=== PATIENT | female | born 2000 | race Caucasian/White ===

== ENCOUNTER 2024-01-21 16:35 | Emergency (ER) | payer OTHER, SELFPAY ==
[2024-01-21 16:43] VITALS: BP 156/102
[2024-01-21 17:14] LABS: HCG, Serum Qualitative Screen Negative
[2024-01-21 17:20] LABS: % Basophils 0.6 % (0-2); % Immature Granulocytes 0.6 % (0-0.5); % Lymphocytes 21.3 % (20.5-51.1); % Monocytes 6.5 % (1.7-9.3); Absolute Basophils 0.1 10^3/uL (0-0.2); Absolute Eosinophils 0.8 10^3/uL (0-0.7); Absolute Immature Granulocytes 0.1 10^3/uL (0-0.05); Absolute Lymphocytes 2.7 10^3/uL (1.2-3.4); Absolute Monocytes 0.8 10^3/uL (0.1-0.6); Absolute Neutrophils 8.2 10^3/uL (1.4-6.5); Hematocrit 39.5 % (37.0-47.0); Hemoglobin 13.1 g/dL (12.0-16.0); Mean Corp Hgb Conc. 33.2 g/dL (33.0-37.0); Mean Corpuscular Hgb 29.2 pg (27.0-31.0); Mean Platelet Volume 10.7 fL (7.4-10.4); Nucleated Red Blood Cells % 0 %; Platelet Count 259 10^3/uL (130-400); Red Blood Cell Count 4.49 10^6/uL (4.20-5.40); Red Cell Dist. Width 13.2 % (11.5-14.5); White Blood Cell Count 12.6 10^3/uL (4.8-10.8)
[2024-01-21 17:24] LABS: ALT (SGPT) 25 U/L (0-35); AST (SGOT) 25 U/L (14-36); Albumin 4.7 g/dl (3.5-5.0); Alkaline Phosphatase 108 U/L (38-126); Blood Urea Nitrogen 14 mg/dl (7-17); Calcium 10.1 mg/dl (8.4-10.2); Carbon Dioxide 25 mmol/L (22-30); Chloride 101 mmol/L (98-107); Glucose 89 mg/dl (70-99); Lipase 88 U/L (23-300); Potassium 4.3 mmol/L (3.5-5.1); Sodium 133 mmol/L (135-145); Total Bilirubin 0.4 mg/dl (0.2-1.3); Total Protein 7.7 g/dl (6.3-8.2); eGFR > 60.00
[2024-01-21 18:59] VITALS: BMI 53.0
[2024-01-21 19:06] VITALS: BP 125/70
--- NOTE | 2024-01-21 19:38 | ED.GENMED ---
History of Present Illness
General
Chief Complaint: Abdominal Pain
Source: patient
Exam Limitations: none
Time Seen by Provider: 01/21/24 19:27
Nursing documentation reviewed up to this point in time: agreed with
Travel History
Have you had any contact with someone who has COVID-19?: No
Do you have any symptoms of coronavirus? Fever > 100 degrees, chills, cough, shortness of breath, sore throat, loss of taste or smell, muscle aches, or headache?: No
History of Present Illness
History of Present Illness:
23-year-old female recently traveled to [facility] when she was there developed diarrhea multiple episodes, with some swelling of her right foot after swimming foot swelling improved diarrhea persisted today she vomited once in the waiting room has some
lower abdominal cramping states she has an IUD does not believe she could be no one else was sick, no fever or chills, no chronic medical issues is a healthy [employer] student she has had no blood in her diarrhea, swelling in her right foot is
improved
Past History
Past History
ED Past Medical History: None
ED Past Surgical History: None
Social History
Tobacco: Non-smoker
Alcohol: None
Drug: None
Living: with roommate
Employment: Student
Review of Systems
Review of Systems
All Other Systems: Not applicable
Constitutional: Denies fever
EENT: Reports no symptoms
Respiratory: Reports no symptoms
ABD/GI: Reports abdominal pain, nausea, vomiting and diarrhea; Denies bloody stools
Skin: Reports other (Initially had some pain and swelling of her right foot which is improved)
Phy Exam
Physical Exam
Physical Exam:
Physical Exam
General: no apparent distress, not acutely ill
Neck: Lips moist
Heart: Regular
Lungs: no acute respiratory distress. clear bilaterally
Abdomen: Soft nontender no guarding or rebound
Neuro: alert and oriented. no focal neurological deficits
Skin: no rash
Psychiatric: well kept. interactive and cooperative
Extremities: Small amount of ecchymosis on the top of the right foot no warmth no tenderness no open wound
Course
Orders/Labs/Results
Orders:
Orders
01/21/24 16:46
Test Result ONCE
01/21/24 16:54
Complete Blood Count/With Diff Urgent
Comprehensive Metabolic Panel Urgent
HCG, Serum Qualitative Screen Urgent
Lipase Urgent
01/21/24 19:33
LevoFLOXacin [Levaquin] 500 mg PO NOW STA
Trimethobenzamide [Tigan] 200 mg IM NOW STA
01/21/24 19:34
Acetaminophen [Tylenol] 1,000 mg PO NOW STA
Dicyclomine [Bentyl] 20 mg PO NOW STA
Abnormal Lab Results
01/21/24
16:54
WBC 12.6 H 10^3/uL
(4.8-10.8)
MPV 10.7 H fL
(7.4-10.4)
Abs Immat Gran (auto) 0.1 H 10^3/uL
(0-0.05)
Absolute Neuts (auto) 8.2 H 10^3/uL
(1.4-6.5)
Absolute Monos (auto) 0.8 H 10^3/uL
(0.1-0.6)
Absolute Eos (auto) 0.8 H 10^3/uL
(0-0.7)
Immature Gran % 0.6 H %
(0-0.5)
Sodium 133 L mmol/L
(135-145)
01/21/24 16:54
01/21/24 16:54
Vital Signs
Initial and Last Documented VS:
Initial Vital Signs
Temp Pulse Resp BP Pulse Ox
99.6 F 82 18 156/102 100
01/21/24 16:43 01/21/24 16:43 01/21/24 16:43 01/21/24 16:43 01/21/24 16:43
Last Documented Vital Signs
Temp Pulse Resp BP Pulse Ox
99.6 F 82 18 156/102 98
01/21/24 16:43 01/21/24 16:43 01/21/24 16:43 01/21/24 16:43 01/21/24 18:59
MDM/Problems Addressed
Differential Diagnosis Includes:
Traveler's diarrhea colitis viral syndrome cellulitis versus contact dermatitis of the foot
MDM/Problems Addressed:
Abdominal cramping diarrhea recent travel foot swelling
*Pulse Oximetry
Patient hypoxic: no
*Critical Care Note
Total Time (30-74mins, 75-104mins- exclusive of procedures): Not Applicable
Update Note
Update Note:
Labs noted patient young and healthy several days of diarrhea after foreign travel to [place] will start empirically on antibiotics traveler's diarrhea her foot looks well hide do not believe this is her main issue
Will have her follow-up here if her symptoms persist or worsen
ED Attending Note
-
Portions of this chart may have been created with voice recognition software.� Occasional wrong word or��sound alike� substitutions may have occurred due to the inherent limitations of voice recognition software.
Discharge Plan
Departure
Patient Disposition: Home (Routine Discharge)
Date of Disposition: 01/21/24
Time of Disposition: 19:35
Patient with high blood pressure during this ER visit?: No
Condition: Good
Discharge Problem:
Diarrhea, travelers'
Instructions: Nausea and Vomiting, Adult (DC), Acute Diarrhea
Prescriptions:
New
dicyclomine 20 mg tablet
20 mg PO QID PRN (Reason: abdominal pain) Qty: 10 0RF
levofloxacin 500 mg tablet
500 mg PO DAILY 5 Days Qty: 5 0RF
trimethobenzamide 300 mg capsule
300 mg PO Q8H PRN (Reason: nausea and vomiting) Qty: 10 0RF
Referrals:
Kaveh Simpson, [Family Provider] -
Interventions
Interventions:
*Risk Screen - Suicide Last Done: 01/21/24 16:43
*General Assessment Last Done: 01/21/24 16:43
*Neglect/Abuse Screening Last Done: 01/21/24 16:43
ED- Fall Risk Assessment Last Done: 01/21/24 18:59
*ED COVID-19 Vaccine History Last Done: 01/21/24 16:43
QU-Yxlfzi-Fpjtxwvlgi Assessment Last Done: 01/21/24 18:59
Discharge Date and Time
Print Language: MAURITANIAN
[2024-01-21] MEDS: LEVAQUIN 500 MG PO (19:56)
[2024-01-21] MEDS: BENTYL 20 MG PO (19:57)
[2024-01-21] MEDS: TIGAN 200 MG IM (19:57)
[2024-01-21] MEDS: TYLENOL 1000 MG PO (19:57)
== END 2024-01-21 20:20 | disposition home or self-care (01) ==
LOC: EMR 16:35
PROVIDERS: Emergency Medicine; EMERGENCY PHYSICIAN Emergency Medicine; FAMILY PHYSICIAN Internal Medicine
DX: R19.7 Diarrhea, unspecified (principal); R11.2 Nausea with vomiting, unspecified; R10.30 Lower abdominal pain, unspecified
CPT/HCPCS: 99284; 96372; 80053; 83690; 84703; 85025